=== PATIENT | male | born 1990 | race Caucasian/White ===

== ENCOUNTER 2017-01-28 08:27 | Emergency (ER) | payer SELFPAY | END 2017-01-28 09:02 | disposition home or self-care (01) | LOC: D.ER 08:27 | DX: J01.90 Acute sinusitis, unspecified (principal); F17.200 Nicotine dependence, unspecified, uncomplicated ==

== ENCOUNTER 2017-07-11 07:19 | Emergency (ER) | payer SELFPAY ==
[2017-07-19 16:15] LABS: AEROBE ID Final report (())
== END 2017-07-11 08:25 | disposition home or self-care (01) ==
LOC: D.ER 07:19
PROVIDERS: Family Medicine
DX: J02.9 Acute pharyngitis, unspecified (principal)

== ENCOUNTER → 2017-12-31 06:19 | Outpatient (CLI) | payer OTHER | END | disposition home or self-care (01) | LOC: D.MRI 06:19 | DX: D18.02 Hemangioma of intracranial structures (principal) ==

== ENCOUNTER 2017-12-31 14:24 | Emergency (ER) | payer OTHER ==
[~2017-12-31] VITALS: Ht 165.1 cm; Wt 90.9 kg
[2017-12-31 14:33] VITALS: Ht 165.1 cm; Wt 90.9 kg
[2017-12-31 19:42] VITALS: BP 135/71
== END 2017-12-31 19:42 | disposition home or self-care (01) ==
LOC: D.ER 14:24
DX: R51 Headache (principal); D18.02 Hemangioma of intracranial structures; R53.1 Weakness; R11.0 Nausea

== ENCOUNTER 2018-04-03 09:23 | Emergency (ER) | payer OTHER ==
[~2018-04-03] VITALS: Ht 165.1 cm; Wt 93.2 kg
[2018-04-03 09:29] VITALS: Ht 165.1 cm; Wt 93.2 kg
[2018-04-03 10:10] LABS: BASOPHILS 0.1 % (0-2); EOSINOPHILS 1.2 % (0-7); HEMATOCRIT 44.2 % (42.0-54.0); HEMOGLOBIN 15.6 g/dL (13.5-17.5); IMMATURE GRANULOCYTES 0.1 % (0-5); LYMPHOCYTES 32.2 % (15-50); MCH 31.1 pg (26.0-34.0); MCHC 35.3 g/dL (31.0-37.0); MCV 88.2 fL (80.0-100.0); MEAN PLATELET VOLUME 8.9 fL (7.4-10.4); MONOCYTES 5.9 % (2-11); NEUTROPHILS 60.5 % (40-80); PLATELET COUNT 252 10x3/uL (130-400); RBC 5.01 10x6/uL (4.20-6.10); RDW 12.3 % (11.5-14.5); WBC 6.8 10x3/uL (4.8-10.8)
[2018-04-03 10:20] LABS: APTT 37.2 SECONDS (22.8-39.4); INR 1.15 (0.85-1.17); PROTIME 14.2 SECONDS (11.6-15.0)
[2018-04-03 10:27] LABS: ALKALINE PHOSPHATASE 68 U/L (46-116); ALT (SGPT) 53 U/L (10-68); BILIRUBIN - TOTAL 0.45 mg/dL (0.2-1.3); CALC OSMOLALITY 282 mosm/kg (275-300); CARBON DIOXIDE 26.7 mmol/L (21.0-32.0); CHLORIDE - SERUM 105 mmol/L (98-107); GLUCOSE 82 mg/dL (74-106); POTASSIUM - SERUM 3.7 mmol/L (3.5-5.1); PROTEIN - SERUM 7.7 g/dL (6.4-8.2); SODIUM 142 mmol/L (136-145); UREA NITROGEN 16 mg/dL (7-18); eGFR NON AFRICAN AMERICAN > 90 mL/min (90-120)
[2018-04-03 11:20] VITALS: BP 117/71
== END 2018-04-03 11:22 | disposition home or self-care (01) ==
LOC: D.ER 09:23
PROVIDERS: Family Medicine
DX: R51 Headache (principal); G93.89 Other specified disorders of brain; Z86.69 Personal history of other diseases of the nervous system and sense organs

== ENCOUNTER 2018-07-05 09:29 | Emergency (ER) | payer OTHER ==
[~2018-07-05] VITALS: Ht 165.1 cm; Wt 86.4 kg
[2018-07-05 09:42] VITALS: Ht 165.1 cm; Wt 86.4 kg
[2018-07-05] MEDS ORDERED: ZOLOFT50 MG PO (09:47)
[2018-07-05] MEDS ORDERED: GEMFIBROZIL600 MG PO (09:47)
[2018-07-05] MEDS ORDERED: CALAN SR240 MG PO (09:47)
[2018-07-05] MEDS ORDERED: BUTALB-APAP-CA1 EACH PO (11:32)
[2018-07-05 12:21] VITALS: BP 123/75
== END 2018-07-05 12:05 | disposition home or self-care (01) ==
LOC: D.ER 09:29
DX: G43.909 Migraine, unspecified, not intractable, without status migrainosus (principal)

== ENCOUNTER → 2018-07-23 14:17 | Outpatient (CLI) | payer OTHER ==
[2018-07-05 09:42] VITALS: BMI 31.6
[~2018-07-23 14:17] MED LIST: BUTALB-APAP-CA1 EACH PO; CALAN SR240 MG PO; GEMFIBROZIL600 MG PO; ZOLOFT50 MG PO
== END | disposition home or self-care (01) ==
LOC: D.MRI 14:17
PROVIDERS: ATTEND Psychiatry & Neurology Neurology
DX: D18.00 Hemangioma unspecified site (principal); G43.109 Migraine with aura, not intractable, without status migrainosus